=== PATIENT | female | born 1965 | race Caucasian/White ===

== ENCOUNTER 2016-05-27 08:20 | Day surgery (SDC) | payer BC ==
[~2016-05-27 08:20] MED LIST: Dextrose 5%-Lactated Ringers 1,000 ML IV SCH; Glycopyrrolate 0.2 MG/ML 2 ML SYRINGE IVPUSH ONE
[2016-05-27] MEDS ORDERED: Dextrose 5%-Lactated Ringers 1,000 ML IV SCH (09:15)
[2016-05-27] MEDS ORDERED: fentaNYL 100 MCG/2 ML SDV ONE (09:23)
[2016-05-27] MEDS ORDERED: Propofol 200 MG/20 ML SDV ONE (09:23)
[2016-05-27] MEDS ORDERED: Midazolam 1 MG/ML 2 ML SDV ONE (09:24)
[2016-05-27] MEDS ORDERED: Glycopyrrolate 0.2 MG/ML 2 ML SYRINGE IVPUSH ONE (10:00)
[2016-05-27 11:54] VITALS: BP 92/68
--- NOTE | 2016-06-03 11:40 | OR ---
DATE OF PROCEDURE: 05/27/2016 PREOPERATIVE DIAGNOSIS: Laryngopharyngeal dysphagia. POSTOPERATIVE DIAGNOSIS: Laryngopharyngeal dysphagia without anatomic abnormalities on upper gastrointestinal endoscopy. OPERATIVE PROCEDURE: Upper GI endoscopy with biopsies of antrum for CLOtest. ANESTHESIA: IV sedation. INDICATIONS: This is a 50-year-old female referred for an upper GI endoscopy for evaluation of the laryngopharyngeal dysphagia. Plan is to proceed with upper GI endoscopy with biopsies and/or dilation as indicated. Potential risks including bleeding and perforation were discussed, and the patient wishes to proceed. DETAILS OF PROCEDURE: The patient was taken to the operating room and placed in the left lateral decubitus position. IV sedation was administered. The upper GI endoscope was passed orally through the length of the esophagus into the stomach with retroflexion view of the fundus, thereafter through the pylorus and then into the duodenum to the junction of the third and fourth portions. Findings included normal larynx, pharynx, and upper esophageal sphincter. There was no reddening or anatomic abnormalities noted in those areas. Other than that, the esophagus, EG junction, stomach, and duodenum were all entirely normal. To establish the patient's H. pylori status, biopsies were obtained from the antrum and sent for a CLOtest for H. pylori. Minimal bleeding of the biopsy site was seen, and the procedure was then concluded. The patient was taken to the recovery room in satisfactory condition. The patient presently is on no gastrointestinal type medications, and there would be no indication to start some at this point. We will obtain an x-ray swallow study with speech pathology consultation to evaluate the laryngopharyngeal dysphagia, and the patient will follow up with Dr. Chen following that exam. Suraj Mccain MD /[id number]
== END 2016-05-27 12:18 | disposition home or self-care (01) ==
LOC: JP.SDS 08:20
PROVIDERS: ATTEND Surgery
DX: R13.13 Dysphagia, pharyngeal phase (principal); Z88.0 Allergy status to penicillin; Z91.040 Latex allergy status; Z91.041 Radiographic dye allergy status; Z91.018 Allergy to other foods
CPT/HCPCS: 43239; 87081; J2250; J2704; J3010; J7042

== ENCOUNTER 2019-01-27 16:39 | Emergency (ER) | payer BC ==
[2019-01-27 16:53] VITALS: BP 118/69; PULSE 78
--- NOTE | 2019-01-27 17:23 | EDM.PDOC ---
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 The chest pain is nothing new but yesterday her left arm and shoulder was hurting, it felt weak, and she had difficulty using it because of the pain. It's much better today but she was talking to her friends about it and they insisted she come in and get checked. Onset: Gradual (Started gradually over the last 2 days) Location: Reports: Chest, Back, Upper Extremity, Left Quality: Reports: Ache, Throbbing Severity: Moderate Improves with: Reports: Rest Worsens with: Reports: Movement Associated Symptoms: Reports: Shortness of Breath (Chronic intermittent shortness of breath, nothing new). Denies: Cough Left Upper Chest Pain Score (Numeric/FACES): 6 - Related Data Allergies Allergy/AdvReac Type Severity Reaction Status Date / Time apple Allergy Edema Verified 11/06/15 05:47 Iodinated Contrast Media Allergy Lightheaded Verified 11/06/15 05:47 [Iodinated Contrast Media - ness IV Dye] Latex, Natural Rubber Allergy Rash Verified 11/06/15 05:47 red dye Allergy Edema Verified 11/06/15 05:47 strawberry Allergy Edema Verified 11/06/15 05:47 tomato Allergy Edema Verified 11/06/15 05:47 tramadol Allergy Cannot Verified 05/24/16 08:24 Remember venom-honey bee Allergy Hives Verified 11/06/15 05:47 [bee venom (honey bee)] gluten AdvReac Nausea and Verified 11/06/15 05:47 Vomiting iodine AdvReac Lightheaded Verified 11/06/15 05:47 ness lactose AdvReac Nausea and Verified 11/06/15 05:47 Vomiting Penicillins AdvReac Headache Verified 11/06/15 05:47 ketchup Allergy Edema Uncoded 11/06/15 05:47 peppers Allergy Edema Uncoded 11/06/15 05:47 Home Meds: Home Meds EPINEPHrine [Epipen 2-Rashel] 1 injection INJECT ASDIRECTED PRN 04/13/14 [History] diphenhydrAMINE [Benadryl] 25 - 50 mg PO Q4H PRN 04/13/14 [History] Nortriptyline HCl 50 mg PO BEDTIME 05/01/16 [History] Gabapentin [Neurontin] 300 mg PO TID 01/27/19 [History] Naproxen 500 mg PO ASDIRECTED 01/27/19 [History] Past Medical History HEENT History: Reports: Impaired Vision Other HEENT History: borderline glaucoma, wears glasses Cardiovascular History: Reports: None Respiratory History: Reports: None Other Gastrointestinal History: abdominal pain with eating Genitourinary History: Reports: None [employer]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: Dysfunctional Uterine Bleeding, Other Musculoskeletal History: "arthritis in my hands, they hurt all the time" Neurological History: Reports: Migraines Psychiatric History: Reports: None Endocrine/Metabolic History: Reports: None Hematologic History: Reports: None Immunologic History: Reports: None Oncologic (Cancer) History: Reports: Breast Other Dermatologic History: dry skin on legs-scratches open - Infectious Disease History Infectious Disease History: Reports: Chicken Pox - Past Surgical History Head Surgeries/Procedures: Reports: None GI Surgical History: Reports: Appendectomy, Colonoscopy, EGD Female Surgical History: Reports: Hysterectomy, Mastectomy Other Female Surgeries/Procedures: bilateral mastectomy 01/30/15 Neurological Surgical History: Reports: None Musculoskeletal Surgical History: Reports: None Oncologic Surgical History: Reports: Mastectomy Dermatological Surgical History: Reports: None Social & Family History - Family History Family Medical History: Noncontributory HEENT: Reports: Otitis Media Respiratory: Reports: Asthma Neurological: Reports: Parkinson's Oncologic: Reports: Lung - Tobacco Use Smoking Status *Q: Never Smoker - Caffeine Use Caffeine Use: Reports: Coffee - Recreational Drug Use Recreational Drug Use: No ED ROS GENERAL - Review of Systems Review Of Systems: See Below Constitutional: Denies: Fever, Chills HEENT: Reports: No Symptoms Respiratory: Reports: Shortness of Breath (Intermittent and chronic) Cardiovascular: Reports: Chest Pain (Left anterior chest pain which is chronic) GI/Abdominal: Reports: No Symptoms Skin: Reports: No Symptoms Neurological: Reports: Paresthesia (Numbness of the left hand and left arm, she has known carpal tunnel) ED EXAM, GENERAL - Physical Exam Exam: See Below Exam Limited By: No Limitations General Appearance: Alert, No Apparent Distress Head: Atraumatic Neck: Other (Very tender to palpation along the anterior trapezius and sternocleidomastoid muscles of the left shoulder, also tender over the anterior shoulder to palpation. She is able to fully rotate her arm and put her hand behind her head but it's painful. There is tenderness to palpation over the left anterior chest wall which is chronic.) Respiratory/Chest: No Respiratory Distress, Lungs Clear Cardiovascular: Regular Rate, Rhythm Neurological: Alert, Oriented Course - Vital Signs Last Recorded V/S: Last Vital Signs Temp 97.3 F 01/27/19 17:07 Pulse 78 01/27/19 17:07 Resp 14 01/27/19 17:07 BP 118/69 01/27/19 17:07 Pulse Ox 99 01/27/19 17:07 - Orders/Labs/Meds Orders: Active Orders 24 hr Category Date Time Status DME for Discharge [COMM] Stat Oth 01/27/19 17:18 Ordered - Re-Assessments/Exams Free Text/Narrative Re-Assessment/Exam: 01/27/19 17:22 Reassured the patient that this is not cardiac but likely neuropathy or musculoskeletal. She was offered a shot of Toradol which she refused. She did accept a sling to use with the left arm to rest the nerve intermittent, 4-6 hours daily in a sling with frequent range of motion of the arm and recheck on Friday if not improving. She may also benefit from a short course of steroid which can be started on Friday if not improving. Departure - Departure Time of Disposition: 17:29 Disposition: Home, Self-Care 01 Clinical Impression: Neuropathic pain, arm - Discharge Information Instructions: Neuropathic Pain Referrals: Jose Zuniga MD [Primary Care Provider] - Forms: ED Department Discharge Care Plan Goals: Try resting your arm in the sling for a couple of hours at a time several times daily. Continue your anti-inflammatories and pain medication, gentle range of motion with the arm when not in the sling would be beneficial. Recheck in 2 days if not improving satisfactorily. - My Orders Last 24 Hours: My Active Orders 01/27/19 17:18 DME for Discharge [COMM] Stat - Assessment/Plan Last 24 Hours: My Active Orders 01/27/19 17:18 DME for Discharge [COMM] Stat
== END 2019-01-27 17:29 | disposition home or self-care (01) ==
LOC: JP.ED 16:39
DX: M79.2 Neuralgia and neuritis, unspecified (principal); Z88.8 Allergy status to other drugs, medicaments and biological substances; Z88.0 Allergy status to penicillin; Z91.018 Allergy to other foods; Z91.030 Bee allergy status; Z91.040 Latex allergy status; Z91.011 Allergy to milk products; Z91.041 Radiographic dye allergy status
CPT/HCPCS: 99284